=== PATIENT | male | born 1985 | race Caucasian/White ===

== ENCOUNTER → 2024-09-11 | Outpatient (CLI) | payer BC ==
[~2024-09-11] MED LIST: EES400 MG PO; MOTRIN800 MG PO; NKHM; VIBRAMYCIN100 MG PO; ZOFRAN ODT4 MG SL
== END | disposition home or self-care (01) ==
LOC: CARD 08:56
DX: R01.1 Cardiac murmur, unspecified (principal)

== ENCOUNTER 2025-01-02 00:35 | Emergency (ER) | payer BC ==
[~2025-01-02] VITALS: Ht 187.9 cm; Wt 124.7 kg
[2025-01-02] MEDS ORDERED: Ketorolac Tromethamine 60 MG/2 ML VIAL IM ONE (06:05)
== END 2025-01-02 06:29 | disposition home or self-care (01) ==
LOC: ED 00:35
DX: R10.12 Left upper quadrant pain (principal); J45.909 Unspecified asthma, uncomplicated; Z88.2 Allergy status to sulfonamides; Z88.8 Allergy status to other drugs, medicaments and biological substances

== ENCOUNTER → 2025-03-30 | Outpatient (CLI) | payer BC ==
[2025-03-30 10:25] LABS: BILIRUBIN Negative (Negative); BLOOD Negative (Negative); CLARITY Clear (Clear); COLOR Yellow (Yellow); GLUCOSE Negative (Negative); KETONE Negative (Negative); LEUKO ESTERASE Negative (Negative); NITRITE Negative (Negative); UROBILINOGEN 0.2 E.U./dl (0.0-1.0)
== END | disposition home or self-care (01) ==
LOC: LAB 09:00
PROVIDERS: ATTEND Family Medicine
DX: I10 Essential (primary) hypertension (principal)